=== PATIENT | female | born 1980 | race African-American/Black ===

== ENCOUNTER 2020-05-23 11:52 | Inpatient (IN) | payer MEDICAID, OTHER ==
[~2020-05-23] VITALS: Ht 152.4 cm; Wt 72.6 kg
[2020-05-23 14:00] LABS: Basophils # (auto) 0 10 ^3/uL (0-0.2); Eosinophils # (auto) 0.1 10 ^3/uL (0-0.8)
[2020-05-23 14:02] LABS: Basophils % (auto) 0.4 % (0.0-2.0); Eosinophils % (auto) 1.6 % (0.0-7.0); Hematocrit 10.6 % (36.0-46.0); Lymphocytes # (auto) 1.2 10 ^3/uL (0.4-5.4); Lymphocytes % (auto) 20.4 % (10.0-50.0); Mean Corpuscular Hemoglobin 15.9 pg (28.0-32.0); Mean Corpuscular Hgb Conc. 28.9 g/dL (32.0-36.0); Mean Corpuscular Volume 54.8 fL (80.0-100.0); Monocytes # (auto) 0.4 10 ^3/uL (0-1.3); Monocytes % (auto) 7.3 % (0.0-12.0); Neutrophils # (auto) 4.3 10 ^3/uL (1.6-8.6); Neutrophils % (auto) 70.3 % (37.0-80.0); Nucleated Red Blood Cells % 0.5 %; Platelet Count (auto) 412 10^3/uL (140-450); Red Blood Cells 1.93 10^6/uL (4.0-5.20); White Blood Cell 6.1 10^3/uL (4.4-10.8)
[2020-05-23 14:06] LABS: Hemoglobin 3.1 g/dL (12.2-16.2); Red Cell Distribution Width 25.5 % (11.8-14.3)
[2020-05-23 14:18] LABS: Albumin 3.2 g/dL (3.4-5.0); Calcium 8.4 mg/dL (8.5-10.1); Potassium 3.8 mmol/L (3.5-5.1)
[2020-05-23 14:24] LABS: BUN/Creatinine Ratio 10.5; Bilirubin, Total 0.7 mg/dL (0.2-1.0); Total Protein 8.5 g/dL (6.4-8.2)
[2020-05-23 14:55] LABS: INR 1.74 (0.9-1.15); Partial Thromboplastin Time 33.2 sec (23.0-31.2)
[2020-05-23 16:22] VITALS: BP 104/67
[2020-05-23 16:45] VITALS: BP 106/70
[2020-05-23 17:23] VITALS: BP 112/61
[2020-05-23] MEDS ORDERED: ACETAMINOPHEN 500 MG TAB PO ONE (18:15)
[2020-05-23] MEDS ORDERED: NITROGLYCERIN 0.4 MG SL TAB SL PRN (18:15)
[2020-05-23] MEDS ORDERED: MORPHINE SULF INJ 2 MG/ML SYRINGE 1ML IV PRN (18:15)
[2020-05-23] MEDS ORDERED: METOCLOPRAMIDE HCL 5MG/ml INJ 2ml VIAL IV PRN (18:15)
[2020-05-23] MEDS ORDERED: ACETAMINOPHEN 650 mg PER 20.3 mL UD PO PRN (18:15)
[2020-05-23 18:45] VITALS: BP 117/64
[2020-05-23 18:57] VITALS: BP 117/64
[2020-05-23 22:34] VITALS: BP 117/81
[2020-05-23] MEDS ORDERED: FUROSEMIDE 20 MG/2 ML VIAL IV ONE (23:15)
[2020-05-23] MEDS ORDERED: FUROSEMIDE 40 MG/4 ML VIAL ONE (23:31)
[2020-05-24 00:40] LABS: Hematocrit 18.4 % (36.0-46.0)
[2020-05-24 01:30] VITALS: BP 116/71
[2020-05-24 01:45] VITALS: BP 115/66
[2020-05-24 04:55] VITALS: BP 111/64
[2020-05-24 05:10] VITALS: BP 106/76
[2020-05-24] MEDS ORDERED: FUROSEMIDE 40 MG/4 ML VIAL IV ONE (05:30)
[2020-05-24 09:08] VITALS: BP 119/79
[2020-05-24 11:19] LABS: Basophils # (auto) 0 10 ^3/uL (0-0.2); Eosinophils # (auto) 0 10 ^3/uL (0-0.8); Hemoglobin 10.3 g/dL (12.2-16.2); Nucleated Red Blood Cells % 0.1 %
[2020-05-24 11:21] LABS: Basophils % (auto) 0.3 % (0.0-2.0); Eosinophils % (auto) 0.7 % (0.0-7.0); Hematocrit 30.8 % (36.0-46.0); Lymphocytes # (auto) 0.9 10 ^3/uL (0.4-5.4); Lymphocytes % (auto) 13.8 % (10.0-50.0); Mean Corpuscular Hemoglobin 24.4 pg (28.0-32.0); Mean Corpuscular Hgb Conc. 33.4 g/dL (32.0-36.0); Monocytes # (auto) 0.6 10 ^3/uL (0-1.3); Monocytes % (auto) 8.8 % (0.0-12.0); Neutrophils # (auto) 5.1 10 ^3/uL (1.6-8.6); Neutrophils % (auto) 76.4 % (37.0-80.0); Platelet Count (auto) 387 10^3/uL (140-450); Red Blood Cells 4.21 10^6/uL (4.0-5.20); White Blood Cell 6.7 10^3/uL (4.4-10.8)
[2020-05-24 11:26] LABS: Red Cell Distribution Width 30.7 % (11.8-14.3)
[2020-05-24] MEDS ORDERED: FERR-7 PO (12:17)
[2020-05-24 13:14] VITALS: BP 108/59
[2020-05-24] MEDS ORDERED: CITA-244 PO (13:45)
[2020-05-24] MEDS ORDERED: CAR125T PO (13:45)
[2020-05-24] MEDS ORDERED: LISI2.5T47 PO (13:45)
[2020-05-24] MEDS ORDERED: ATOR80TA PO (13:45)
[2020-05-24] MEDS ORDERED: FAMO20TA10 PO (13:45)
[2020-05-24] MEDS ORDERED: ASPI-231 PO (13:45)
[2020-05-24] MEDS ORDERED: RIVA20TA PO (13:45)
[2020-05-24] MEDS ORDERED: CETI1TAB36 PO (13:45)
== END 2020-05-24 14:24 | disposition home or self-care (01) | DRG 532 ==
LOC: ER 11:52 → OVERFLOW 11:53
PROVIDERS: ADMIT Hospitalist; ATTEND Hospitalist
PROC: 30233N1 Transfusion of Nonautologous Red Blood Cells into Peripheral Vein, Percutaneous Approach (ICD-10-PCS; principal; 2020-05-23)
DX: N93.8 Other specified abnormal uterine and vaginal bleeding (principal); N92.0 Excessive and frequent menstruation with regular cycle; Z20.822 Contact with and (suspected) exposure to COVID-19; Z86.73 Personal history of transient ischemic attack (TIA), and cerebral infarction without residual deficits; D62 Acute posthemorrhagic anemia
CPT/HCPCS: 36415; 36430; 76856; 80053; 84484; 84702; 85014; 85018; 85025; 85610; 85730; 86850; 86900; 86901; 86920; 96374; 96376; G0378

== ENCOUNTER 2022-03-21 07:46 | Inpatient (IN) | payer OTHER, MEDICAID ==
[2022-03-21] VITALS (20 sets, daily range): BP systolic 86–104; BP diastolic 59–73
[~2022-03-21] VITALS: Ht 121.9 cm; Wt 43.1 kg
[~2022-03-21 07:46] MED LIST: ASPI1TAB20 PO; ATOR80TA PO; CAR125T PO; CETI1TAB36 PO; CITA-244 PO; FAMO20TA10 PO; FERR-7 PO; LISI2.5T47 PO; RIVA20TA PO
[2022-03-21] MEDS ORDERED: ADENOSINE 6 MG/2 ML INJ IV ONE ×3 (07:55→08:00)
[2022-03-21] MEDS ORDERED: ACETAMINOPHEN 650 MG RECT SUPP PR ONE (08:00)
[2022-03-21] MEDS ORDERED: dilTIAZem 25 MG/5 ML VIAL IV ONE ×2 (08:08→08:45)
[2022-03-21] MEDS ORDERED: MIDAZOLAM HCL 2MG/2ML 2ml VIAL (1mg/ml) ONE (08:12)
[2022-03-21] MEDS ORDERED: PHENYLEPHRINE HCL 10 MG/ML VL IV ONE (08:15)
[2022-03-21] MEDS ORDERED: PHENYLEPHRINE HCL 10 MG/ML VL ONE (08:19)
[2022-03-21] MEDS ORDERED: DIGOXIN (250MCG/ML) 2 ML AMPULE ONE (08:27)
[2022-03-21] MEDS ORDERED: MIDAZOLAM HCL 2MG/2ML 2ml VIAL (1mg/ml) IV ONE (08:45)
[2022-03-21] MEDS ORDERED: DIGOXIN (250MCG/ML) 2 ML AMPULE IV ONE (09:15)
[2022-03-21] MEDS ORDERED: AMIODARONE HCL 150 MG in D5W 5% 100 ML IV ONE (09:15)
[2022-03-21 09:49] LABS: Basophils # (auto) 0 10 ^3/uL (0-0.2); Eosinophils # (auto) 0 10 ^3/uL (0-0.8); Hematocrit 31.6 % (36.0-46.0); Lymphocytes # (auto) 1.2 10 ^3/uL (0.4-5.4); Lymphocytes % (auto) 8.5 % (10.0-50.0); Mean Corpuscular Hemoglobin 27.4 pg (28.0-32.0); Mean Corpuscular Hgb Conc. 31.8 g/dL (32.0-36.0); Mean Corpuscular Volume 86.2 fL (80.0-100.0); Monocytes # (auto) 0.6 10 ^3/uL (0-1.3); Monocytes % (auto) 4.3 % (0.0-12.0); Neutrophils % (auto) 87.2 % (37.0-80.0); Red Blood Cells 3.66 10^6/uL (4.0-5.20); Red Cell Distribution Width 18.9 % (11.8-14.3); White Blood Cell 13.8 10^3/uL (4.4-10.8)
[2022-03-21 09:54] LABS: INR 1.17 (0.9-1.15); Partial Thromboplastin Time 36.8 sec (24.6-33.4)
[2022-03-21 10:16] LABS: Potassium 3.7 mmol/L (3.5-5.1)
[2022-03-21 10:32] LABS: Albumin 1.5 g/dL (3.4-5.0); BUN/Creatinine Ratio 9.6; Bilirubin, Total 0.6 mg/dL (0.2-1.0); Magnesium 2.5 mg/dL (1.6-2.6); Total Protein 6.9 g/dL (6.4-8.2)
[2022-03-21 10:43] LABS: Urine Bacteria NONE SEEN /hpf (None Seen); Urine Blood TRACE /uL (Negative); Urine Hyaline Cast MOD /lpf (0 - 2); Urine Mucus FEW (None Seen); Urine Specific Gravity 1.024 (1.001-1.035); Urine WBC 11 /hpf (0 - 5)
[2022-03-21] MEDS ORDERED: D5W/SOD CHL 0.45% 1,000 ML IV ONE (10:45)
[2022-03-21] MEDS ORDERED: AMIODARONE 450mg/250ml AE 250 ML IV SCH (10:45)
[2022-03-21] MEDS ORDERED: ASPirin 300 MG RECTAL SUPP PR ONE (10:45)
[2022-03-21] MEDS ORDERED: CEFEPIME 1GM/ 50ML 50 ML IV ONE ×2 (11:00→11:15)
[2022-03-21] MEDS ORDERED: SODIUM CHLORIDE 0.9% 2,000 ML IV ONE (11:00)
[2022-03-21] MEDS ORDERED: HEPARIN DRIP/D5W 100UNITS/ML 250 ML IV SCH (11:15)
[2022-03-21] MEDS ORDERED: VANCOMYCIN 1GM/250ML 250 ML IV ONE (11:45)
[2022-03-21] MEDS ORDERED: HEPARIN SODIUM (PORCINE) 5000 UNITS/ML 1ML VIAL IV ONE (11:45)
[2022-03-21] MEDS: PHENYLEPHRINE IV 250 ML IV SCH (12:23)
[2022-03-21] MEDS ORDERED: VANCOMYCIN PER PHARMACY 0 MG IV SCH (12:30)
[2022-03-21] MEDS ORDERED: NITROGLYCERIN 0.4 MG SL TAB SL PRN (12:30)
[2022-03-21] MEDS ORDERED: DOCUSATE SOD 100 MG CAP PO PRN (12:30)
[2022-03-21] MEDS ORDERED: ONDANSETRON HCL 4 MG/2 ML VIAL IV PRN (12:30)
[2022-03-21] MEDS ORDERED: ACETAMINOPHEN 325 MG TAB PO PRN (12:30)
[2022-03-21] MEDS ORDERED: MORPHINE SULFATE 4 MG/ML SYR/VIAL IV PRN (12:30)
[2022-03-21] MEDS ORDERED: CEFEPIME 2 GM in SODIUM CHL 0.9% 50 ML IV SCH (14:00)
[2022-03-21] MEDS: SODIUM CHLORIDE 0.9% 1,000 ML IV SCH (15:01)
[2022-03-21] MEDS: CEFEPIME 2 GM in SODIUM CHL 0.9% 50 ML IV SCH (15:01)
[2022-03-21 15:20] LABS: Basophils # (auto) 0 10 ^3/uL (0-0.2); Basophils % (auto) 0.2 % (0.0-2.0); Eosinophils # (auto) 0 10 ^3/uL (0-0.8); Hematocrit 29.6 % (36.0-46.0); Hemoglobin 9.4 g/dL (12.2-16.2); Lymphocytes # (auto) 1.7 10 ^3/uL (0.4-5.4); Lymphocytes % (auto) 27.4 % (10.0-50.0); Mean Corpuscular Hemoglobin 27.9 pg (28.0-32.0); Mean Corpuscular Hgb Conc. 31.9 g/dL (32.0-36.0); Mean Corpuscular Volume 87.4 fL (80.0-100.0); Monocytes # (auto) 0.2 10 ^3/uL (0-1.3); Monocytes % (auto) 3.6 % (0.0-12.0); Neutrophils # (auto) 4.4 10 ^3/uL (1.6-8.6); Neutrophils % (auto) 68.8 % (37.0-80.0); Nucleated Red Blood Cells % 0.2 %; Red Blood Cells 3.38 10^6/uL (4.0-5.20); Red Cell Distribution Width 19.3 % (11.8-14.3); White Blood Cell 6.4 10^3/uL (4.4-10.8)
[2022-03-21 15:35] LABS: Magnesium 1.9 mg/dL (1.6-2.6); Phosphorus 3.9 mg/dL (2.5-4.90)
[2022-03-21 15:42] LABS: Sodium Urine 33 mmol/L (40-220)
[2022-03-21 15:55] LABS: Creatinine, Urine 475 mg/dL (30.0-125.0)
[2022-03-21 15:58] LABS: Ferritin 644.9 ng/mL (10-322)
[2022-03-21 16:21] LABS: % Iron Saturation 13.9 % (15-50)
[2022-03-21] MEDS: AMIODARONE 450mg/250ml AE 250 ML IV SCH ×2 (17:00→18:45)
[2022-03-21 18:18] LABS: Uric Acid 8.3 mg/dL (2.6-6.0)
[2022-03-21 18:34] LABS: Folate (Folic Acid) 13.74 ng/mL (5.38-24)
[2022-03-21] MEDS ORDERED: AZITHROMYCIN 500MG/ 250ML 250 ML IV ONE (22:30)
[2022-03-22] VITALS (92 sets, daily range): BP systolic 83–113; BP diastolic 56–83
[2022-03-22] MEDS: SODIUM CHLORIDE 0.9% 1,000 ML IV SCH ×3 (03:10→11:57)
[2022-03-22 04:26] LABS: Basophils # (auto) 0 10 ^3/uL (0-0.2); Eosinophils # (auto) 0 10 ^3/uL (0-0.8); Hemoglobin 11.3 g/dL (12.2-16.2); Monocytes # (auto) 0.4 10 ^3/uL (0-1.3); Monocytes % (auto) 4.8 % (0.0-12.0)
[2022-03-22 04:27] LABS: Basophils % (auto) 0.4 % (0.0-2.0); Hematocrit 35.5 % (36.0-46.0); Lymphocytes % (auto) 12.5 % (10.0-50.0); Mean Corpuscular Hemoglobin 28.4 pg (28.0-32.0); Mean Corpuscular Hgb Conc. 31.8 g/dL (32.0-36.0); Mean Corpuscular Volume 89.1 fL (80.0-100.0); Neutrophils # (auto) 6.4 10 ^3/uL (1.6-8.6); Neutrophils % (auto) 82.3 % (37.0-80.0); Red Blood Cells 3.99 10^6/uL (4.0-5.20); Red Cell Distribution Width 19.3 % (11.8-14.3); White Blood Cell 7.8 10^3/uL (4.4-10.8)
[2022-03-22 05:04] LABS: Albumin 1.3 g/dL (3.4-5.0); BUN/Creatinine Ratio 13.5; Calcium 6.5 mg/dL (8.5-10.1); Potassium 3.3 mmol/L (3.5-5.1)
[2022-03-22 05:07] LABS: Bilirubin, Total 0.5 mg/dL (0.2-1.0); Total Protein 6.3 g/dL (6.4-8.2)
[2022-03-22] MEDS ORDERED: POTASSIUM CHL 20MEQ/100ML 100 ML IV ONE (06:00)
[2022-03-22] MEDS: PHENYLEPHRINE IV 250 ML IV SCH ×3 (08:15→18:16)
[2022-03-22] MEDS: PANTOPRAZOLE 40 MG/10 ML VIAL INJ IV SCH (09:58)
[2022-03-22] MEDS ORDERED: ENOXAPARIN SOD 40 MG/0.4 ML SYRINGE SC SCH (10:00)
[2022-03-22] MEDS: ASPirin 81 mg TAB PO SCH (10:00)
[2022-03-22] MEDS ORDERED: LACTATED RINGER'S 1,000 ML IV ONE ×2 (10:00)
[2022-03-22] MEDS: AZITHROMYCIN 500MG/ 250ML 250 ML IV SCH (10:04)
[2022-03-22] MEDS ORDERED: GASTROGRAFIN 120 ML SOL ONE (11:41)
[2022-03-22] MEDS: HYDROCORTISONE SOD SUCC 100 MG/2ML INJ VIAL IV SCH ×3 (11:53→22:04)
[2022-03-22] MEDS: CEFEPIME 2 GM in SODIUM CHL 0.9% 50 ML IV SCH (12:57)
[2022-03-22] MEDS ORDERED: metroNIDAZOLE 500MG/100ML 100 ML IV SCH (14:00)
[2022-03-22] MEDS: metroNIDAZOLE 500MG/100ML 100 ML IV SCH (17:23)
[2022-03-22] MEDS: AMIODARONE 450mg/250ml AE 250 ML IV SCH (22:30)
[2022-03-23] VITALS (62 sets, daily range): BP systolic 91–121; BP diastolic 61–86
[2022-03-23] MEDS: metroNIDAZOLE 500MG/100ML 100 ML IV SCH ×4 (00:33→23:34)
[2022-03-23] MEDS: SODIUM CHLORIDE 0.9% 1,000 ML IV SCH ×2 (01:30→08:16)
[2022-03-23] MEDS: HYDROCORTISONE SOD SUCC 100 MG/2ML INJ VIAL IV SCH ×4 (04:10→22:05)
[2022-03-23 04:26] LABS: Urine Bacteria FEW /hpf (None Seen); Urine Blood 2+ /uL (Negative); Urine Hyaline Cast MOD /lpf (0 - 2); Urine Mucus FEW (None Seen); Urine Specific Gravity 1.029 (1.001-1.035); Urine WBC 14 /hpf (0 - 5)
[2022-03-23 04:34] LABS: Creatinine, Urine 156 mg/dL (30.0-125.0); Sodium Urine 14 mmol/L (40-220)
[2022-03-23 04:36] LABS: Albumin 1.1 g/dL (3.4-5.0); Calcium 6.7 mg/dL (8.5-10.1); Uric Acid 7.2 mg/dL (2.6-6.0)
[2022-03-23 04:39] LABS: BUN/Creatinine Ratio 21.3; Bilirubin, Direct 0.1 mg/dL (0-0.2); Bilirubin, Total 0.5 mg/dL (0.2-1.0); Phosphorus 3.4 mg/dL (2.5-4.90); Total Protein 5.9 g/dL (6.4-8.2)
[2022-03-23 04:49] LABS: Potassium 2.9 mmol/L (3.5-5.1)
[2022-03-23] MEDS: POTASSIUM CHL 20MEQ/100ML 100 ML IV SCH ×4 (06:26→18:10)
[2022-03-23] MEDS: PHENYLEPHRINE IV 250 ML IV SCH ×3 (08:17→22:20)
[2022-03-23] MEDS: D5W 5% 1,000 ML IV SCH ×2 (08:50→18:10)
[2022-03-23] MEDS: ASPirin 81 mg TAB PO SCH (09:49)
[2022-03-23] MEDS: AZITHROMYCIN 500MG/ 250ML 250 ML IV SCH (09:49)
[2022-03-23] MEDS: PANTOPRAZOLE 40 MG/10 ML VIAL INJ IV SCH (09:49)
[2022-03-23] MEDS ORDERED: ADENOSINE 6 MG/2 ML INJ IV ONE (11:42)
[2022-03-23] MEDS ORDERED: AMIODARONE HCL (50 MG/ ML) 3 ML VIAL IV ONE (11:43)
[2022-03-23] MEDS ORDERED: POTASSIUM CHLORIDE 40 MEQ, LIDOCAINE 1% (LOCAL ANESTH.) 4 ML in SODIUM CHL 0.9% 250 ML IV ONE (11:45)
[2022-03-23] MEDS: CEFEPIME 2 GM in SODIUM CHL 0.9% 50 ML IV SCH (12:30)
[2022-03-23] MEDS: AMIODARONE 450mg/250ml AE 250 ML IV SCH (12:30)
[2022-03-23 15:31] LABS: BUN/Creatinine Ratio 22.2; Calcium 7.1 mg/dL (8.5-10.1)
[2022-03-23] MEDS ORDERED: KETOROLAC TROMETH 30 MG/ML 1ML VIAL IV ONE (23:15)
[2022-03-24] VITALS (51 sets, daily range): BP systolic 98–123; BP diastolic 72–94
[2022-03-24] MEDS: AMIODARONE 450mg/250ml AE 250 ML IV SCH ×2 (03:09→21:05)
[2022-03-24] MEDS: D5W 5% 1,000 ML IV SCH (03:28)
[2022-03-24] MEDS: HYDROCORTISONE SOD SUCC 100 MG/2ML INJ VIAL IV SCH ×4 (03:31→21:53)
[2022-03-24 04:52] LABS: Basophils # (auto) 0 10 ^3/uL (0-0.2); Basophils % (auto) 0.2 % (0.0-2.0); Eosinophils # (auto) 0 10 ^3/uL (0-0.8); Hematocrit 31.9 % (36.0-46.0); Hemoglobin 9.7 g/dL (12.2-16.2); Lymphocytes # (auto) 0.7 10 ^3/uL (0.4-5.4); Lymphocytes % (auto) 6.7 % (10.0-50.0); Mean Corpuscular Hemoglobin 27.8 pg (28.0-32.0); Mean Corpuscular Hgb Conc. 30.4 g/dL (32.0-36.0); Mean Corpuscular Volume 91.3 fL (80.0-100.0); Monocytes # (auto) 0.4 10 ^3/uL (0-1.3); Monocytes % (auto) 3.6 % (0.0-12.0); Neutrophils # (auto) 9.8 10 ^3/uL (1.6-8.6); Neutrophils % (auto) 89.5 % (37.0-80.0); White Blood Cell 10.9 10^3/uL (4.4-10.8)
[2022-03-24 04:56] LABS: Red Cell Distribution Width 20.7 % (11.8-14.3)
[2022-03-24 05:00] LABS: BUN/Creatinine Ratio 25.4; Calcium 7.1 mg/dL (8.5-10.1); Potassium 3.4 mmol/L (3.5-5.1)
[2022-03-24] MEDS: PHENYLEPHRINE IV 250 ML IV SCH ×3 (06:40→23:20)
[2022-03-24] MEDS: metroNIDAZOLE 500MG/100ML 100 ML IV SCH ×3 (08:19→23:47)
[2022-03-24] MEDS: ASPirin 81 mg TAB PO SCH (08:21)
[2022-03-24] MEDS ORDERED: POTASSIUM CHL 20MEQ/100ML 100 ML IV ONE ×2 (09:15→10:15)
[2022-03-24] MEDS ORDERED: D5W/SOD CHL 0.45% 1,000 ML IV SCH (09:30)
[2022-03-24] MEDS: AZITHROMYCIN 500MG/ 250ML 250 ML IV SCH (09:36)
[2022-03-24] MEDS: PANTOPRAZOLE 40 MG/10 ML VIAL INJ IV SCH (09:37)
[2022-03-24] MEDS ORDERED: DOPamine 1600MCG/ML D5W 250 ML IV SCH (10:15)
[2022-03-24] MEDS: CEFEPIME 2 GM in SODIUM CHL 0.9% 50 ML IV SCH (11:51)
[2022-03-25] VITALS (32 sets, daily range): BP systolic 109–144; BP diastolic 81–112
[2022-03-25] MEDS: HYDROCORTISONE SOD SUCC 100 MG/2ML INJ VIAL IV SCH (03:39)
[2022-03-25 04:37] LABS: Basophils # (auto) 0 10 ^3/uL (0-0.2); Basophils % (auto) 0.1 % (0.0-2.0); Eosinophils # (auto) 0 10 ^3/uL (0-0.8); Hematocrit 33.8 % (36.0-46.0); Hemoglobin 10.4 g/dL (12.2-16.2); Lymphocytes # (auto) 0.6 10 ^3/uL (0.4-5.4); Lymphocytes % (auto) 4.2 % (10.0-50.0); Mean Corpuscular Hemoglobin 27.6 pg (28.0-32.0); Mean Corpuscular Hgb Conc. 30.6 g/dL (32.0-36.0); Mean Corpuscular Volume 90.1 fL (80.0-100.0); Monocytes # (auto) 0.4 10 ^3/uL (0-1.3); Monocytes % (auto) 2.7 % (0.0-12.0); Neutrophils # (auto) 12.7 10 ^3/uL (1.6-8.6); Nucleated Red Blood Cells % 0.5 %; Red Blood Cells 3.75 10^6/uL (4.0-5.20); White Blood Cell 13.7 10^3/uL (4.4-10.8)
[2022-03-25] MEDS: PHENYLEPHRINE IV 250 ML IV SCH ×2 (07:40→16:00)
[2022-03-25] MEDS: metroNIDAZOLE 500MG/100ML 100 ML IV SCH ×2 (08:00→16:22)
[2022-03-25 08:24] LABS: Potassium 3.5 mmol/L (3.5-5.1)
[2022-03-25 08:34] LABS: BUN/Creatinine Ratio 26.5; Bilirubin, Total 0.3 mg/dL (0.2-1.0); Calcium 7.6 mg/dL (8.5-10.1); Total Protein 6.4 g/dL (6.4-8.2)
[2022-03-25] MEDS: CEFEPIME 2 GM in SODIUM CHL 0.9% 50 ML IV SCH (10:00)
[2022-03-25] MEDS ORDERED: CLOPIDOGREL BISULFATE 75 MG TAB PO SCH (10:00)
[2022-03-25] MEDS: PANTOPRAZOLE 40 MG/10 ML VIAL INJ IV SCH (10:19)
[2022-03-25] MEDS: DOXYCYCLINE 100MG/250ML 250 ML IV SCH ×2 (10:30→22:02)
[2022-03-25] MEDS ORDERED: SOD CHL 0.45% 1,000 ML IV SCH (10:30)
[2022-03-25] MEDS: ENOXAPARIN SOD 30 MG/0.3 ML SYRINGE SC SCH (11:03)
[2022-03-25] MEDS ORDERED: AMIODARONE 450mg/250ml AE 250 ML IV ONE (12:17)
[2022-03-25 12:37] LABS: INR 1.12 (0.9-1.15); Partial Thromboplastin Time 32.2 sec (24.6-33.4)
[2022-03-25] MEDS: SODIUM BICARBONATE 50ML VIAL 50 ML in D5W 5% 1,000 ML IV SCH (13:45)
[2022-03-25] MEDS: METOCLOPRAMIDE HCL 5MG/ml INJ 2ml VIAL IV SCH ×2 (14:00→22:04)
[2022-03-25] MEDS ORDERED: WARFARIN SODIUM 1 MG TAB PO ONE (17:00)
[2022-03-25] MEDS: AMIODARONE HCL 200 MG TAB PO SCH (22:02)
[2022-03-26] VITALS (22 sets, daily range): BP systolic 107–135; BP diastolic 80–92
[2022-03-26] MEDS: PHENYLEPHRINE IV 250 ML IV SCH ×2 (00:20→08:40)
[2022-03-26] MEDS: metroNIDAZOLE 500MG/100ML 100 ML IV SCH ×3 (02:02→16:00)
[2022-03-26] MEDS: SODIUM BICARBONATE 50ML VIAL 50 ML in D5W 5% 1,000 ML IV SCH ×2 (03:30→10:45)
[2022-03-26 04:09] LABS: INR 1.13 (0.9-1.15); Partial Thromboplastin Time 34.8 sec (24.6-33.4)
[2022-03-26] MEDS: METOCLOPRAMIDE HCL 5MG/ml INJ 2ml VIAL IV SCH (06:24)
[2022-03-26] MEDS ORDERED: ALBUMIN 25% 100 ML IV ONE (08:15)
[2022-03-26 08:22] LABS: Basophils # (auto) 0 10 ^3/uL (0-0.2); Basophils % (auto) 0.2 % (0.0-2.0); Eosinophils # (auto) 0 10 ^3/uL (0-0.8); Hematocrit 33.6 % (36.0-46.0); Hemoglobin 10.9 g/dL (12.2-16.2); Lymphocytes # (auto) 0.5 10 ^3/uL (0.4-5.4); Lymphocytes % (auto) 4.2 % (10.0-50.0); Mean Corpuscular Hemoglobin 28.3 pg (28.0-32.0); Mean Corpuscular Hgb Conc. 32.6 g/dL (32.0-36.0); Mean Corpuscular Volume 86.9 fL (80.0-100.0); Monocytes # (auto) 0.4 10 ^3/uL (0-1.3); Monocytes % (auto) 3.1 % (0.0-12.0); Neutrophils # (auto) 11.6 10 ^3/uL (1.6-8.6); Neutrophils % (auto) 92.5 % (37.0-80.0); Nucleated Red Blood Cells % 0.1 %; Red Blood Cells 3.86 10^6/uL (4.0-5.20); White Blood Cell 12.5 10^3/uL (4.4-10.8)
[2022-03-26 08:25] LABS: Albumin 1.2 g/dL (3.4-5.0); BUN/Creatinine Ratio 24.8; Bilirubin, Total 0.2 mg/dL (0.2-1.0); Calcium 7.2 mg/dL (8.5-10.1); Potassium 3.6 mmol/L (3.5-5.1); Total Protein 5.9 g/dL (6.4-8.2)
[2022-03-26] MEDS: POTASSIUM CHL 20MEQ/100ML 100 ML IV SCH ×2 (08:45→11:09)
[2022-03-26 08:47] LABS: Red Cell Distribution Width 20.4 % (11.8-14.3)
[2022-03-26] MEDS: AMIODARONE HCL 200 MG TAB PO SCH ×2 (10:00→21:48)
[2022-03-26] MEDS: CEFEPIME 2 GM in SODIUM CHL 0.9% 50 ML IV SCH (10:00)
[2022-03-26] MEDS: ENOXAPARIN SOD 30 MG/0.3 ML SYRINGE SC SCH (10:00)
[2022-03-26] MEDS: PANTOPRAZOLE 40 MG/10 ML VIAL INJ IV SCH (10:26)
[2022-03-26] MEDS: DOXYCYCLINE 100MG/250ML 250 ML IV SCH ×2 (10:30→22:01)
[2022-03-26] MEDS: ENOXAPARIN SOD 100 MG/1 ML SYRINGE SC SCH ×2 (11:44→21:50)
[2022-03-26] MEDS ORDERED: MORPHINE SULFATE INJ 2 MG/ml SYRG IV PRN (15:15)
[2022-03-26] MEDS ORDERED: MORPHINE SULFATE INJ 2 MG/ml SYRG ONE (15:20)
[2022-03-26] MEDS ORDERED: WARFARIN SODIUM 5 MG TAB PO ONE (17:00)
[2022-03-27] VITALS (13 sets, daily range): BP systolic 104–132; BP diastolic 71–104
[2022-03-27] MEDS: metroNIDAZOLE 500MG/100ML 100 ML IV SCH ×2 (00:03→08:00)
[2022-03-27] MEDS: SODIUM BICARBONATE 50ML VIAL 50 ML in D5W 5% 1,000 ML IV SCH ×2 (01:00→07:45)
[2022-03-27 09:17] LABS: Basophils # (auto) 0 10 ^3/uL (0-0.2); Eosinophils # (auto) 0 10 ^3/uL (0-0.8); Hemoglobin 10.8 g/dL (12.2-16.2); Lymphocytes # (auto) 0.6 10 ^3/uL (0.4-5.4); Lymphocytes % (auto) 4.8 % (10.0-50.0); Mean Corpuscular Hemoglobin 27.3 pg (28.0-32.0); Mean Corpuscular Hgb Conc. 31.9 g/dL (32.0-36.0); Mean Corpuscular Volume 85.4 fL (80.0-100.0); Monocytes # (auto) 0.3 10 ^3/uL (0-1.3); Monocytes % (auto) 2.1 % (0.0-12.0); Neutrophils # (auto) 12.3 10 ^3/uL (1.6-8.6); Neutrophils % (auto) 93.1 % (37.0-80.0); Red Blood Cells 3.97 10^6/uL (4.0-5.20); Red Cell Distribution Width 19.2 % (11.8-14.3); White Blood Cell 13.2 10^3/uL (4.4-10.8)
[2022-03-27 09:42] LABS: Albumin 1.4 g/dL (3.4-5.0); BUN/Creatinine Ratio 21.1
[2022-03-27 09:50] LABS: Bilirubin, Total 0.4 mg/dL (0.2-1.0); Total Protein 4.9 g/dL (6.4-8.2)
[2022-03-27 09:54] LABS: INR 1.17 (0.9-1.15); Partial Thromboplastin Time 38.3 sec (24.6-33.4)
[2022-03-27] MEDS: CEFEPIME 2 GM in SODIUM CHL 0.9% 50 ML IV SCH (10:00)
[2022-03-27] MEDS: PANTOPRAZOLE 40 MG/10 ML VIAL INJ IV SCH (10:00)
[2022-03-27] MEDS ORDERED: SOD CHL 0.45% 1,000 ML IV SCH (10:30)
[2022-03-27] MEDS: AMIODARONE HCL 200 MG TAB PO SCH ×2 (12:01→22:46)
[2022-03-27] MEDS ORDERED: POTASSIUM CHL 20MEQ/100ML 100 ML IV SCH (13:45)
[2022-03-27] MEDS: POTASSIUM CHL 20MEQ/100ML 100 ML IV SCH ×3 (14:43→20:43)
[2022-03-27] MEDS: METOPROLOL TARTRATE 25 MG TAB PO SCH ×2 (16:01→22:46)
[2022-03-27] MEDS ORDERED: WARFARIN SODIUM 5 MG TAB NG ONE (17:00)
[2022-03-27] MEDS: SODIUM BICARBONATE 50ML VIAL 50 ML in SOD CHL 0.45% 1,000 ML IV SCH (20:34)
[2022-03-27] MEDS: ENOXAPARIN SOD 100 MG/1 ML SYRINGE SC SCH ×2 (22:47→22:51)
[2022-03-27] MEDS: DOXYCYCLINE 100MG/250ML 250 ML IV SCH (23:09)
[2022-03-28] MEDS: SODIUM BICARBONATE 50ML VIAL 50 ML in SOD CHL 0.45% 1,000 ML IV SCH ×4 (00:15→17:26)
[2022-03-28] MEDS: metroNIDAZOLE 500MG/100ML 100 ML IV SCH ×2 (00:23→08:21)
[2022-03-28] MEDS: POTASSIUM CHL 20MEQ/100ML 100 ML IV SCH (00:24)
[2022-03-28 05:00] VITALS: BP 121/90
[2022-03-28 07:28] LABS: INR 1.19 (0.9-1.15)
[2022-03-28 08:00] VITALS: BP 122/84
[2022-03-28] MEDS: PANTOPRAZOLE 40 MG/10 ML VIAL INJ IV SCH (11:06)
[2022-03-28] MEDS: METOPROLOL TARTRATE 25 MG TAB PO SCH (11:07)
[2022-03-28] MEDS: ENOXAPARIN SOD 100 MG/1 ML SYRINGE SC SCH ×2 (11:07→21:20)
[2022-03-28] MEDS: AMIODARONE HCL 200 MG TAB PO SCH (11:08)
[2022-03-28] MEDS ORDERED: POTASSIUM CHL 20MEQ/100ML 100 ML IV SCH (11:30)
[2022-03-28] MEDS: DOXYCYCLINE 100MG/250ML 250 ML IV SCH (11:42)
[2022-03-28 12:00] VITALS: BP 105/80
[2022-03-28] MEDS ORDERED: TPN PER PHARMACY 0 ML IV SCH (12:30)
[2022-03-28 12:54] LABS: Basophils # (auto) 0 10 ^3/uL (0-0.2); Eosinophils # (auto) 0 10 ^3/uL (0-0.8); Eosinophils % (auto) 0.1 % (0.0-7.0); Hematocrit 29.7 % (36.0-46.0); Hemoglobin 9.7 g/dL (12.2-16.2); Lymphocytes # (auto) 0.6 10 ^3/uL (0.4-5.4); Lymphocytes % (auto) 3.9 % (10.0-50.0); Mean Corpuscular Hemoglobin 27.7 pg (28.0-32.0); Mean Corpuscular Hgb Conc. 32.7 g/dL (32.0-36.0); Mean Corpuscular Volume 84.8 fL (80.0-100.0); Monocytes # (auto) 0.3 10 ^3/uL (0-1.3); Monocytes % (auto) 2.3 % (0.0-12.0); Neutrophils # (auto) 13.5 10 ^3/uL (1.6-8.6); Neutrophils % (auto) 93.7 % (37.0-80.0); Red Cell Distribution Width 19.9 % (11.8-14.3); White Blood Cell 14.4 10^3/uL (4.4-10.8)
[2022-03-28 13:03] LABS: BUN/Creatinine Ratio 26.7; Calcium 7.4 mg/dL (8.5-10.1); Potassium 4.2 mmol/L (3.5-5.1)
[2022-03-28 15:27] LABS: Magnesium 1.2 mg/dL (1.6-2.6); Phosphorus 1.5 mg/dL (2.5-4.90)
[2022-03-28] MEDS: METOCLOPRAMIDE HCL 5MG/ml INJ 2ml VIAL IV SCH ×2 (15:37→21:21)
[2022-03-28] MEDS ORDERED: GASTROGRAFIN 120 ML SOL ONE (15:58)
[2022-03-28 16:00] VITALS: BP 137/95
[2022-03-28] MEDS ORDERED: SODIUM PHOSPHATES 30 MEQ in D5W 5% 250 ML IV ONE (16:45)
[2022-03-28] MEDS: MAGNESIUM SULFATE 1GM/100ML 100 ML IV SCH ×3 (17:47→20:27)
[2022-03-28] MEDS: MEROPENEM 1GM IVPB 100 ML IV SCH (21:33)
[2022-03-28 22:00] VITALS: BP 117/78
[2022-03-29] MEDS ORDERED: DEXTROSE (50%) 50ML SYRG IV SCH
[2022-03-29] MEDS: ACCU-CHEK COMFORT CURVE STRIP VI SCH ×5 (00:56→23:29)
[2022-03-29] MEDS: AMINO ACID INFUSION IN D10W 1,000 ML IV NR ×2 (00:57→19:49)
[2022-03-29] MEDS: InsuLIN REG 1unit/0.01ml Soln (100units/ml) SC SCH ×5 (05:06→23:29)
[2022-03-29] MEDS: METOCLOPRAMIDE HCL 5MG/ml INJ 2ml VIAL IV SCH ×3 (05:07→21:35)
[2022-03-29 06:24] LABS: Basophils # (auto) 0 10 ^3/uL (0-0.2); Eosinophils # (auto) 0 10 ^3/uL (0-0.8); Eosinophils % (auto) 0.2 % (0.0-7.0); Hematocrit 26.2 % (36.0-46.0); Lymphocytes # (auto) 0.7 10 ^3/uL (0.4-5.4); Lymphocytes % (auto) 7.9 % (10.0-50.0); Mean Corpuscular Hgb Conc. 34.3 g/dL (32.0-36.0); Mean Corpuscular Volume 84.4 fL (80.0-100.0); Monocytes # (auto) 0.2 10 ^3/uL (0-1.3); Monocytes % (auto) 2.6 % (0.0-12.0); Neutrophils # (auto) 7.8 10 ^3/uL (1.6-8.6); Neutrophils % (auto) 89.3 % (37.0-80.0); Red Cell Distribution Width 19.1 % (11.8-14.3); White Blood Cell 8.7 10^3/uL (4.4-10.8)
[2022-03-29 06:42] LABS: Potassium 3.5 mmol/L (3.5-5.1)
[2022-03-29 06:45] LABS: Albumin 1.3 g/dL (3.4-5.0); BUN/Creatinine Ratio 28.9; Magnesium 1.9 mg/dL (1.6-2.6)
[2022-03-29 06:48] LABS: Bilirubin, Total 0.4 mg/dL (0.2-1.0); Phosphorus 3.5 mg/dL (2.5-4.90); Total Protein 4.9 g/dL (6.4-8.2)
[2022-03-29] MEDS: METOPROLOL TARTRATE 1MG/1ML-5ML VIAL IV PRN (06:51)
[2022-03-29 08:45] VITALS: BP 137/95
[2022-03-29] MEDS ORDERED: GASTROGRAFIN 120 ML SOL ONE (08:52)
[2022-03-29] MEDS: ENOXAPARIN SOD 100 MG/1 ML SYRINGE SC SCH ×2 (10:44→21:36)
[2022-03-29] MEDS: PANTOPRAZOLE 40 MG/10 ML VIAL INJ IV SCH (10:44)
[2022-03-29] MEDS: MEROPENEM 1GM IVPB 100 ML IV SCH ×2 (10:44→21:35)
[2022-03-29] MEDS ORDERED: CARVEDILOL 3.125 MG TAB PO ONE (10:45)
[2022-03-29] MEDS ORDERED: MAGNESIUM SULFATE 1GM/100ML 100 ML IV ONE (11:00)
[2022-03-29] MEDS ORDERED: POTASSIUM CHLORIDE 20 MEQ in SODIUM CHLORIDE 0.9% 1,000 ML IV SCH (12:00)
[2022-03-29 12:40] VITALS: BP 129/88
[2022-03-29] MEDS: SOD CHL 0.9%/ KCL 20MEQ 1,000 ML IV SCH (12:52)
[2022-03-29] MEDS ORDERED: POTASSIUM CHLORIDE 40 MEQ, LIDOCAINE 1% (LOCAL ANESTH.) 4 ML in SODIUM CHL 0.9% 250 ML IV ONE (13:00)
[2022-03-29 17:37] VITALS: BP 143/97
[2022-03-29] MEDS ORDERED: PPN PER PHARMACY IV NR ×10 (20:00)
[2022-03-29] MEDS: CARVEDILOL 3.125 MG TAB PO SCH (21:36)
[2022-03-29 22:00] VITALS: BP 139/96
[2022-03-30] MEDS: SOD CHL 0.9%/ KCL 20MEQ 1,000 ML IV SCH ×2 (03:55→21:28)
[2022-03-30 05:00] VITALS: BP 130/86
[2022-03-30] MEDS: METOCLOPRAMIDE HCL 5MG/ml INJ 2ml VIAL IV SCH ×3 (05:56→21:25)
[2022-03-30] MEDS: InsuLIN REG 1unit/0.01ml Soln (100units/ml) SC SCH ×3 (05:56→18:00)
[2022-03-30] MEDS: ACCU-CHEK COMFORT CURVE STRIP VI SCH ×3 (05:57→18:24)
[2022-03-30 08:53] LABS: Albumin 1.2 g/dL (3.4-5.0); BUN/Creatinine Ratio 38.7; Calcium 6.8 mg/dL (8.5-10.1); Magnesium 1.9 mg/dL (1.6-2.6); Phosphorus 1.8 mg/dL (2.5-4.90); Potassium 3.4 mmol/L (3.5-5.1); Total Protein 4.8 g/dL (6.4-8.2)
[2022-03-30 08:59] LABS: Bilirubin, Total 0.3 mg/dL (0.2-1.0)
[2022-03-30 09:18] VITALS: BP 116/80
[2022-03-30] MEDS ORDERED: POTASSIUM PHOSPHATE 44 MEQ in D5W 5% 250 ML IV ONE (09:30)
[2022-03-30] MEDS: PANTOPRAZOLE 40 MG/10 ML VIAL INJ IV SCH (09:41)
[2022-03-30] MEDS: ENOXAPARIN SOD 100 MG/1 ML SYRINGE SC SCH (09:42)
[2022-03-30] MEDS: CARVEDILOL 3.125 MG TAB PO SCH ×2 (09:43→21:41)
[2022-03-30] MEDS: MEROPENEM 1GM IVPB 100 ML IV SCH ×2 (09:43→21:25)
[2022-03-30 13:00] VITALS: BP 118/89
[2022-03-30 17:00] VITALS: BP 128/77
[2022-03-30] MEDS ORDERED: PPN PER PHARMACY IV NR ×9 (20:00)
[2022-03-30] MEDS: ENOXAPARIN SOD 40 MG/0.4 ML SYRINGE SC SCH (21:25)
[2022-03-30 22:00] VITALS: BP 114/86
[2022-03-31] MEDS: ACCU-CHEK COMFORT CURVE STRIP VI SCH ×5 (00:13→23:52)
[2022-03-31 05:00] VITALS: BP 122/78
[2022-03-31 05:43] VITALS: BP 122/78
[2022-03-31] MEDS: METOCLOPRAMIDE HCL 5MG/ml INJ 2ml VIAL IV SCH ×3 (05:55→22:31)
[2022-03-31] MEDS: InsuLIN REG 1unit/0.01ml Soln (100units/ml) SC SCH ×5 (06:00→23:52)
[2022-03-31 06:45] LABS: INR 1.03 (0.9-1.15)
[2022-03-31 07:08] LABS: Albumin 1.2 g/dL (3.4-5.0); BUN/Creatinine Ratio 47.6; Bilirubin, Total 0.5 mg/dL (0.2-1.0); Calcium 6.8 mg/dL (8.5-10.1); Magnesium 1.7 mg/dL (1.6-2.6); Phosphorus 2.6 mg/dL (2.5-4.90); Potassium 3.7 mmol/L (3.5-5.1); Total Protein 4.6 g/dL (6.4-8.2)
[2022-03-31] MEDS: METOPROLOL TARTRATE 1MG/1ML-5ML VIAL IV PRN (08:59)
[2022-03-31 09:00] VITALS: BP 103/71
[2022-03-31] MEDS: PANTOPRAZOLE 40 MG/10 ML VIAL INJ IV SCH (10:15)
[2022-03-31] MEDS: ENOXAPARIN SOD 40 MG/0.4 ML SYRINGE SC SCH ×2 (10:16→22:32)
[2022-03-31] MEDS: CARVEDILOL 3.125 MG TAB PO SCH ×2 (10:24→22:32)
[2022-03-31] MEDS: AMIODARONE HCL 200 MG TAB PO SCH ×2 (11:41→22:31)
[2022-03-31] MEDS: MEROPENEM 1GM IVPB 100 ML IV SCH ×2 (11:55→22:31)
[2022-03-31 13:00] VITALS: BP 106/75
[2022-03-31] MEDS ORDERED: DIGOXIN (250MCG/ML) 2 ML AMPULE IV ONE (16:00)
[2022-03-31 16:49] VITALS: BP 110/79
[2022-03-31] MEDS ORDERED: WARFARIN SODIUM 5 MG TAB PO ONE (17:00)
[2022-03-31] MEDS ORDERED: PPN PER PHARMACY IV NR ×9 (20:00)
[2022-03-31] MEDS: SOD CHL 0.9%/ KCL 20MEQ 1,000 ML IV SCH (20:00)
[2022-03-31 22:00] VITALS: BP 101/74
[2022-04-01 05:00] VITALS: BP 102/79
[2022-04-01] MEDS: METOCLOPRAMIDE HCL 5MG/ml INJ 2ml VIAL IV SCH (06:33)
[2022-04-01] MEDS: ACCU-CHEK COMFORT CURVE STRIP VI SCH ×2 (06:33→12:05)
[2022-04-01] MEDS: InsuLIN REG 1unit/0.01ml Soln (100units/ml) SC SCH ×2 (06:33→12:00)
[2022-04-01 07:14] LABS: Basophils # (auto) 0 10 ^3/uL (0-0.2); Basophils % (auto) 0.1 % (0.0-2.0); Eosinophils # (auto) 0 10 ^3/uL (0-0.8); Eosinophils % (auto) 0.2 % (0.0-7.0); Red Cell Distribution Width 18.9 % (11.8-14.3)
[2022-04-01 07:17] LABS: Hematocrit 25.3 % (36.0-46.0); Hemoglobin 8.4 g/dL (12.2-16.2); Lymphocytes # (auto) 1.1 10 ^3/uL (0.4-5.4); Lymphocytes % (auto) 13.2 % (10.0-50.0); Mean Corpuscular Hemoglobin 29.1 pg (28.0-32.0); Mean Corpuscular Hgb Conc. 33.1 g/dL (32.0-36.0); Mean Corpuscular Volume 87.9 fL (80.0-100.0); Monocytes # (auto) 0.7 10 ^3/uL (0-1.3); Monocytes % (auto) 7.8 % (0.0-12.0); Neutrophils # (auto) 6.7 10 ^3/uL (1.6-8.6); Neutrophils % (auto) 78.7 % (37.0-80.0); Red Blood Cells 2.88 10^6/uL (4.0-5.20); White Blood Cell 8.5 10^3/uL (4.4-10.8)
[2022-04-01 07:46] LABS: Albumin 1.2 g/dL (3.4-5.0); Calcium 6.8 mg/dL (8.5-10.1); Magnesium 1.8 mg/dL (1.6-2.6); Potassium 3.9 mmol/L (3.5-5.1)
[2022-04-01 07:59] LABS: BUN/Creatinine Ratio 39.5; Bilirubin, Total 0.7 mg/dL (0.2-1.0); Phosphorus 2.5 mg/dL (2.5-4.90); Total Protein 4.8 g/dL (6.4-8.2)
[2022-04-01 09:00] VITALS: BP 123/78
[2022-04-01] MEDS ORDERED: AMIODARONE 450mg/250ml AE 250 ML IV SCH ×3 (10:15→16:15)
[2022-04-01] MEDS: PANTOPRAZOLE 40 MG TAB PO SCH (10:18)
[2022-04-01] MEDS: CARVEDILOL 3.125 MG TAB PO SCH ×2 (10:19→21:31)
[2022-04-01] MEDS: ENOXAPARIN SOD 40 MG/0.4 ML SYRINGE SC SCH ×2 (10:26→21:32)
[2022-04-01 10:39] LABS: INR 1.03 (0.9-1.15)
[2022-04-01] MEDS ORDERED: MAGNESIUM SULFATE 1GM/100ML 100 ML IV ONE (11:00)
[2022-04-01] MEDS ORDERED: METOPROLOL TARTRATE 1MG/1ML-5ML VIAL IV ONE (11:00)
[2022-04-01 13:00] VITALS: BP 115/70
[2022-04-01 17:00] VITALS: BP 105/72
[2022-04-01] MEDS ORDERED: WARFARIN SODIUM 2 MG TAB PO ONE (17:00)
[2022-04-01] MEDS: ENSURE CLEAR Mixed Berry 8oz Carton PO SCH ×2 (18:37→18:39)
[2022-04-01] MEDS: AMIODARONE 450mg/250ml AE 250 ML IV SCH (20:06)
[2022-04-01 22:00] VITALS: BP 117/87
[2022-04-02 05:00] VITALS: BP 126/84
[2022-04-02 06:01] LABS: Basophils # (auto) 0 10 ^3/uL (0-0.2); Basophils % (auto) 0.1 % (0.0-2.0); Eosinophils # (auto) 0 10 ^3/uL (0-0.8); Eosinophils % (auto) 0.1 % (0.0-7.0); Hematocrit 21.9 % (36.0-46.0); Red Cell Distribution Width 17.6 % (11.8-14.3)
[2022-04-02 06:04] LABS: Hemoglobin 7.5 g/dL (12.2-16.2); Lymphocytes # (auto) 1.1 10 ^3/uL (0.4-5.4); Lymphocytes % (auto) 10.1 % (10.0-50.0); Mean Corpuscular Hemoglobin 28.7 pg (28.0-32.0); Mean Corpuscular Volume 84.4 fL (80.0-100.0); Monocytes # (auto) 0.9 10 ^3/uL (0-1.3); Monocytes % (auto) 8.6 % (0.0-12.0); Neutrophils # (auto) 8.5 10 ^3/uL (1.6-8.6); Neutrophils % (auto) 81.1 % (37.0-80.0); White Blood Cell 10.4 10^3/uL (4.4-10.8)
[2022-04-02 07:08] LABS: Calcium 7.1 mg/dL (8.5-10.1); Magnesium 1.7 mg/dL (1.6-2.6); Potassium 3.7 mmol/L (3.5-5.1)
[2022-04-02 08:05] LABS: INR 1.18 (0.9-1.15); Partial Thromboplastin Time 30.3 sec (24.6-33.4)
[2022-04-02 09:00] VITALS: BP 107/81
[2022-04-02] MEDS: ENSURE CLEAR Mixed Berry 8oz Carton PO SCH ×3 (09:16→19:03)
[2022-04-02] MEDS ORDERED: DIGOXIN (250MCG/ML) 2 ML AMPULE IV ONE ×2 (10:30→16:00)
[2022-04-02] MEDS: AMIODARONE 450mg/250ml AE 250 ML IV SCH (10:53)
[2022-04-02] MEDS: CARVEDILOL 3.125 MG TAB PO SCH ×2 (10:54→22:48)
[2022-04-02] MEDS: ENOXAPARIN SOD 40 MG/0.4 ML SYRINGE SC SCH ×2 (10:55→22:46)
[2022-04-02] MEDS: PANTOPRAZOLE 40 MG TAB PO SCH (10:55)
[2022-04-02 13:00] VITALS: BP 109/75
[2022-04-02] MEDS ORDERED: ADENOSINE 6 MG/2 ML INJ IV ONE (14:45)
[2022-04-02 17:00] VITALS: BP 112/74
[2022-04-02] MEDS ORDERED: WARFARIN SODIUM 2 MG TAB PO ONE (17:00)
[2022-04-02 22:00] VITALS: BP 113/77
[2022-04-02] MEDS: DOCUSATE SOD 100 MG CAP PO SCH (22:00)
[2022-04-02] MEDS: FERROUS SULFATE 300 MG/5 ML ORAL LIQ PO SCH (22:46)
[2022-04-02] MEDS: METOCLOPRAMIDE 10 mg/10ml ORAL soln PO SCH (22:50)
[2022-04-03] MEDS: AMIODARONE 450mg/250ml AE 250 ML IV SCH ×2 (01:00→15:30)
[2022-04-03 05:27] VITALS: BP 100/62
[2022-04-03 06:38] LABS: Basophils # (auto) 0 10 ^3/uL (0-0.2); Basophils % (auto) 0.1 % (0.0-2.0); Eosinophils # (auto) 0 10 ^3/uL (0-0.8); Eosinophils % (auto) 0.1 % (0.0-7.0); Hematocrit 24.6 % (36.0-46.0); Hemoglobin 7.8 g/dL (12.2-16.2); Lymphocytes # (auto) 1.2 10 ^3/uL (0.4-5.4); Lymphocytes % (auto) 8.2 % (10.0-50.0); Mean Corpuscular Hemoglobin 28.1 pg (28.0-32.0); Mean Corpuscular Hgb Conc. 31.6 g/dL (32.0-36.0); Mean Corpuscular Volume 89.1 fL (80.0-100.0); Monocytes % (auto) 7.2 % (0.0-12.0); Neutrophils # (auto) 12.3 10 ^3/uL (1.6-8.6); Neutrophils % (auto) 84.4 % (37.0-80.0); Nucleated Red Blood Cells % 0.1 %; Red Blood Cells 2.76 10^6/uL (4.0-5.20); Red Cell Distribution Width 18.4 % (11.8-14.3); White Blood Cell 14.6 10^3/uL (4.4-10.8)
[2022-04-03 06:52] LABS: INR 1.55 (0.9-1.15); Partial Thromboplastin Time 35.5 sec (24.6-33.4)
[2022-04-03] MEDS: ENSURE CLEAR Mixed Berry 8oz Carton PO SCH ×2 (08:00→12:24)
[2022-04-03 09:00] VITALS: BP 112/70
[2022-04-03] MEDS: DOCUSATE SOD 100 MG CAP PO SCH ×2 (10:00→22:00)
[2022-04-03] MEDS: ENOXAPARIN SOD 40 MG/0.4 ML SYRINGE SC SCH ×2 (10:31→23:02)
[2022-04-03] MEDS: CARVEDILOL 3.125 MG TAB PO SCH ×2 (10:32→23:01)
[2022-04-03] MEDS: FERROUS SULFATE 300 MG/5 ML ORAL LIQ PO SCH ×2 (10:32→22:00)
[2022-04-03] MEDS: PANTOPRAZOLE 40 MG TAB PO SCH (10:33)
[2022-04-03] MEDS: METOCLOPRAMIDE 10 mg/10ml ORAL soln PO SCH ×2 (12:24→23:01)
[2022-04-03 13:00] VITALS: BP 102/66
[2022-04-03] MEDS ORDERED: ACETAMINOPHEN 650 mg PER 20.3 mL UD GT PRN (15:45)
[2022-04-03 17:00] VITALS: BP 110/76
[2022-04-03] MEDS ORDERED: WARFARIN SODIUM 5 MG TAB PO ONE (17:00)
[2022-04-03 22:12] VITALS: BP 107/73
[2022-04-04] MEDS: AMIODARONE 450mg/250ml AE 250 ML IV SCH (04:28)
[2022-04-04 05:50] VITALS: BP 115/73
[2022-04-04 08:14] VITALS: BP 114/83
[2022-04-04 10:04] LABS: BUN/Creatinine Ratio 22.5; Calcium 7.3 mg/dL (8.5-10.1); Potassium 3.6 mmol/L (3.5-5.1)
[2022-04-04] MEDS: FERROUS SULFATE 300 MG/5 ML ORAL LIQ PO SCH ×2 (10:20→22:34)
[2022-04-04] MEDS: PANTOPRAZOLE 40 MG TAB PO SCH (10:21)
[2022-04-04] MEDS: DIGOXIN 0.125 MG TAB PO SCH (10:21)
[2022-04-04] MEDS: METOCLOPRAMIDE 10 mg/10ml ORAL soln PO SCH ×2 (10:22→22:36)
[2022-04-04] MEDS: ENOXAPARIN SOD 40 MG/0.4 ML SYRINGE SC SCH ×2 (10:22→22:35)
[2022-04-04] MEDS: ENSURE CLEAR Mixed Berry 8oz Carton PO SCH ×2 (10:24→13:53)
[2022-04-04 11:27] LABS: Basophils # (auto) 0 10 ^3/uL (0-0.2); Eosinophils # (auto) 0 10 ^3/uL (0-0.8); Hemoglobin 7.2 g/dL (12.2-16.2); Mean Corpuscular Volume 84.7 fL (80.0-100.0); White Blood Cell 16.9 10^3/uL (4.4-10.8)
[2022-04-04 11:33] LABS: Basophils % (auto) 0.1 % (0.0-2.0); Hematocrit 21.7 % (36.0-46.0); Lymphocytes % (auto) 6.1 % (10.0-50.0); Mean Corpuscular Hgb Conc. 33.1 g/dL (32.0-36.0); Monocytes # (auto) 0.9 10 ^3/uL (0-1.3); Monocytes % (auto) 5.1 % (0.0-12.0); Neutrophils # (auto) 14.9 10 ^3/uL (1.6-8.6); Neutrophils % (auto) 88.7 % (37.0-80.0); Red Blood Cells 2.56 10^6/uL (4.0-5.20)
[2022-04-04 12:05] LABS: INR 3.26 (0.9-1.15); Partial Thromboplastin Time 52.9 sec (24.6-33.4)
[2022-04-04 12:16] VITALS: BP 124/81
[2022-04-04 17:00] VITALS: BP 108/77
[2022-04-04] MEDS ORDERED: ACETAMINOPHEN 650 MG RECT SUPP PR PRN (17:45)
[2022-04-04 22:00] VITALS: BP 131/70
[2022-04-04] MEDS: CARVEDILOL 3.125 MG TAB PO SCH (22:34)
[2022-04-04] MEDS: Ensure Enlive Vanilla 8oz Bottle PO SCH (22:37)
[2022-04-05] VITALS (9 sets, daily range): BP systolic 98–127; BP diastolic 67–87
[2022-04-05] MEDS: AMIODARONE 450mg/250ml AE 250 ML IV SCH ×2 (00:08→15:22)
[2022-04-05 05:14] LABS: Basophils # (auto) 0 10 ^3/uL (0-0.2); Basophils % (auto) 0.2 % (0.0-2.0); Eosinophils # (auto) 0 10 ^3/uL (0-0.8); Hematocrit 19.9 % (36.0-46.0); Lymphocytes # (auto) 0.8 10 ^3/uL (0.4-5.4); Lymphocytes % (auto) 4.8 % (10.0-50.0); Mean Corpuscular Hemoglobin 27.2 pg (28.0-32.0); Mean Corpuscular Hgb Conc. 32.3 g/dL (32.0-36.0); Monocytes # (auto) 0.7 10 ^3/uL (0-1.3); Monocytes % (auto) 4.6 % (0.0-12.0); Neutrophils # (auto) 14.3 10 ^3/uL (1.6-8.6); Neutrophils % (auto) 90.4 % (37.0-80.0); Red Blood Cells 2.37 10^6/uL (4.0-5.20); Red Cell Distribution Width 17.2 % (11.8-14.3); White Blood Cell 15.8 10^3/uL (4.4-10.8)
[2022-04-05 05:18] LABS: Hemoglobin 6.4 g/dL (12.2-16.2)
[2022-04-05 05:23] LABS: INR 3.15 (0.9-1.15); Partial Thromboplastin Time 55.4 sec (24.6-33.4)
[2022-04-05 05:36] LABS: Potassium 3.8 mmol/L (3.5-5.1)
[2022-04-05 05:41] LABS: BUN/Creatinine Ratio 28.1; Calcium 7.3 mg/dL (8.5-10.1)
[2022-04-05] MEDS: PANTOPRAZOLE 40 MG TAB PO SCH (09:06)
[2022-04-05] MEDS: CARVEDILOL 3.125 MG TAB PO SCH ×2 (09:07→22:01)
[2022-04-05] MEDS: FERROUS SULFATE 300 MG/5 ML ORAL LIQ PO SCH ×2 (09:07→22:00)
[2022-04-05] MEDS: DOCUSATE SOD 100 MG CAP PO SCH (09:08)
[2022-04-05] MEDS: METOCLOPRAMIDE 10 mg/10ml ORAL soln PO SCH ×2 (09:08→22:01)
[2022-04-05] MEDS: ENOXAPARIN SOD 40 MG/0.4 ML SYRINGE SC SCH ×2 (09:08→22:00)
[2022-04-05] MEDS: Ensure Enlive Vanilla 8oz Bottle PO SCH ×2 (09:09→22:00)
[2022-04-05] MEDS: Juven Orange Powder PACKET 27.5gm PO SCH (09:09)
[2022-04-05] MEDS ORDERED: ACETAMINOPHEN 650 mg PER 20.3 mL UD PO PRN (16:00)
[2022-04-06 05:00] VITALS: BP 136/88
[2022-04-06] MEDS: AMIODARONE 450mg/250ml AE 250 ML IV SCH ×2 (06:02→17:07)
[2022-04-06 06:06] LABS: INR 2.94 (0.9-1.15)
[2022-04-06 07:47] LABS: Basophils # (auto) 0 10 ^3/uL (0-0.2); Basophils % (auto) 0.2 % (0.0-2.0); Eosinophils # (auto) 0 10 ^3/uL (0-0.8); Eosinophils % (auto) 0.1 % (0.0-7.0); Hematocrit 27.6 % (36.0-46.0); Hemoglobin 9.1 g/dL (12.2-16.2); Lymphocytes # (auto) 0.8 10 ^3/uL (0.4-5.4); Lymphocytes % (auto) 5.7 % (10.0-50.0); Mean Corpuscular Hemoglobin 28.5 pg (28.0-32.0); Mean Corpuscular Hgb Conc. 33.1 g/dL (32.0-36.0); Mean Corpuscular Volume 86.3 fL (80.0-100.0); Monocytes # (auto) 0.5 10 ^3/uL (0-1.3); Monocytes % (auto) 3.5 % (0.0-12.0); Neutrophils # (auto) 13.5 10 ^3/uL (1.6-8.6); Neutrophils % (auto) 90.5 % (37.0-80.0); Red Cell Distribution Width 16.1 % (11.8-14.3); White Blood Cell 14.9 10^3/uL (4.4-10.8)
[2022-04-06] MEDS: PANTOPRAZOLE 40 MG TAB PO SCH (08:57)
[2022-04-06] MEDS: ENOXAPARIN SOD 40 MG/0.4 ML SYRINGE SC SCH ×2 (08:58→22:26)
[2022-04-06] MEDS: CARVEDILOL 3.125 MG TAB PO SCH ×2 (08:58→22:25)
[2022-04-06] MEDS: DIGOXIN 0.125 MG TAB PO SCH (08:58)
[2022-04-06] MEDS: FERROUS SULFATE 300 MG/5 ML ORAL LIQ PO SCH ×2 (08:58→22:24)
[2022-04-06] MEDS: DOCUSATE SOD 100 MG CAP PO SCH (08:59)
[2022-04-06] MEDS: Ensure Enlive Vanilla 8oz Bottle PO SCH ×2 (08:59→22:37)
[2022-04-06] MEDS: METOCLOPRAMIDE 10 mg/10ml ORAL soln PO SCH ×2 (08:59→22:26)
[2022-04-06] MEDS: Juven Orange Powder PACKET 27.5gm PO SCH (08:59)
[2022-04-06 09:22] VITALS: BP 109/84
[2022-04-06 13:00] VITALS: BP 109/81
[2022-04-06 17:00] VITALS: BP 118/88
[2022-04-06] MEDS ORDERED: WARFARIN SODIUM 2 MG TAB PO SCH (17:00)
[2022-04-06 22:00] VITALS: BP 108/86
[2022-04-07] VITALS (7 sets, daily range): BP systolic 81–115; BP diastolic 57–77
[2022-04-07 06:32] LABS: Basophils # (auto) 0 10 ^3/uL (0-0.2); Basophils % (auto) 0.3 % (0.0-2.0); Eosinophils # (auto) 0 10 ^3/uL (0-0.8); Eosinophils % (auto) 0.1 % (0.0-7.0); Hematocrit 30.3 % (36.0-46.0); Lymphocytes # (auto) 1.3 10 ^3/uL (0.4-5.4); Lymphocytes % (auto) 9.5 % (10.0-50.0); Mean Corpuscular Hemoglobin 28.8 pg (28.0-32.0); Mean Corpuscular Hgb Conc. 33.1 g/dL (32.0-36.0); Mean Corpuscular Volume 86.9 fL (80.0-100.0); Monocytes # (auto) 0.5 10 ^3/uL (0-1.3); Monocytes % (auto) 3.5 % (0.0-12.0); Neutrophils # (auto) 11.7 10 ^3/uL (1.6-8.6); Neutrophils % (auto) 86.6 % (37.0-80.0); Nucleated Red Blood Cells % 0.2 %; Red Blood Cells 3.49 10^6/uL (4.0-5.20); Red Cell Distribution Width 16.4 % (11.8-14.3); White Blood Cell 13.5 10^3/uL (4.4-10.8)
[2022-04-07 07:27] LABS: INR 1.94 (0.9-1.15); Partial Thromboplastin Time 44.9 sec (24.6-33.4)
[2022-04-07] MEDS: ENOXAPARIN SOD 40 MG/0.4 ML SYRINGE SC SCH (08:44)
[2022-04-07] MEDS: CARVEDILOL 3.125 MG TAB PO SCH ×2 (08:44→21:35)
[2022-04-07] MEDS: FERROUS SULFATE 300 MG/5 ML ORAL LIQ PO SCH ×2 (08:44→21:45)
[2022-04-07] MEDS: PANTOPRAZOLE 40 MG TAB PO SCH (08:44)
[2022-04-07] MEDS: Ensure Enlive Vanilla 8oz Bottle PO SCH ×2 (08:45→22:00)
[2022-04-07] MEDS: Juven Orange Powder PACKET 27.5gm PO SCH (08:45)
[2022-04-07] MEDS: METOCLOPRAMIDE 10 mg/10ml ORAL soln PO SCH (08:45)
[2022-04-07] MEDS ORDERED: AMIODARONE HCL 200 MG TAB PO SCH (10:00)
[2022-04-07] MEDS ORDERED: HYALURONIDASE 150 UNIT/1 ML SUBCUT ONE ×2 (10:15→11:15)
[2022-04-07 11:23] LABS: Potassium 3.8 mmol/L (3.5-5.1)
[2022-04-07 11:26] LABS: Magnesium 1.2 mg/dL (1.6-2.6)
[2022-04-07] MEDS: DRONEDARONE HCL 400 MG TAB PO SCH ×2 (12:03→21:39)
[2022-04-07] MEDS ORDERED: SODIUM CHLORIDE 0.9% 500 ML IV ONE (12:15)
[2022-04-07] MEDS ORDERED: POTASSIUM CHLORIDE 20 MEQ, LIDOCAINE 1% (LOCAL ANESTH.) 2 ML in SODIUM CHL 0.9% 100 ML IV ONE (12:15)
[2022-04-07] MEDS: MAGNESIUM SULFATE 1GM/100ML 100 ML IV SCH ×2 (13:22→14:28)
[2022-04-07] MEDS ORDERED: WARFARIN SODIUM 2.5 MG TAB PO ONE (17:00)
[2022-04-07] MEDS: MAGNESIUM OXIDE 400 MG TAB PO SCH (21:35)
[2022-04-08 05:00] VITALS: BP 110/69
[2022-04-08 07:12] LABS: Magnesium 1.5 mg/dL (1.6-2.6); Potassium 4.1 mmol/L (3.5-5.1)
[2022-04-08] MEDS: Juven Orange Powder PACKET 27.5gm PO SCH (08:12)
[2022-04-08] MEDS ORDERED: MAGNESIUM SULFATE 1GM/100ML 100 ML IV ONE (08:15)
[2022-04-08 08:46] VITALS: BP 112/70
[2022-04-08 09:28] LABS: INR 1.87 (0.9-1.15); Partial Thromboplastin Time 39.7 sec (24.6-33.4)
[2022-04-08] MEDS: FERROUS SULFATE 300 MG/5 ML ORAL LIQ PO SCH ×2 (09:42→22:30)
[2022-04-08] MEDS: DRONEDARONE HCL 400 MG TAB PO SCH ×2 (09:42→22:00)
[2022-04-08] MEDS: PANTOPRAZOLE 40 MG TAB PO SCH (09:42)
[2022-04-08] MEDS: DIGOXIN 0.125 MG TAB PO SCH (09:43)
[2022-04-08] MEDS: MAGNESIUM OXIDE 400 MG TAB PO SCH ×2 (09:43→22:26)
[2022-04-08] MEDS: CARVEDILOL 3.125 MG TAB PO SCH ×2 (09:44→22:25)
[2022-04-08] MEDS: Ensure Enlive Vanilla 8oz Bottle PO SCH ×2 (09:44→22:30)
[2022-04-08] MEDS ORDERED: MEROPENEM 1GM IVPB 100 ML IV ONE (10:15)
[2022-04-08] MEDS ORDERED: VANCOMYCIN PER PHARMACY 0 MG IV SCH (10:15)
[2022-04-08] MEDS ORDERED: VANCOMYCIN 750mg/250ml 250 ML IV ONE (10:30)
[2022-04-08 13:00] VITALS: BP 123/59
[2022-04-08 17:00] VITALS: BP 95/61
[2022-04-08] MEDS ORDERED: WARFARIN SODIUM 2 MG TAB PO ONE (17:00)
[2022-04-08 22:00] VITALS: BP 103/57
[2022-04-09] MEDS: VANCOMYCIN 750mg/250ml 250 ML IV SCH ×3 (00:59→21:15)
[2022-04-09 05:00] VITALS: BP 96/62
[2022-04-09 06:44] LABS: Basophils # (auto) 0 10 ^3/uL (0-0.2); Basophils % (auto) 0.3 % (0.0-2.0); Eosinophils # (auto) 0 10 ^3/uL (0-0.8); Eosinophils % (auto) 0.2 % (0.0-7.0); Neutrophils # (auto) 3.7 10 ^3/uL (1.6-8.6); Nucleated Red Blood Cells % 0.1 %
[2022-04-09 06:46] LABS: Hematocrit 23.7 % (36.0-46.0); Lymphocytes # (auto) 0.7 10 ^3/uL (0.4-5.4); Mean Corpuscular Hemoglobin 28.8 pg (28.0-32.0); Mean Corpuscular Hgb Conc. 33.6 g/dL (32.0-36.0); Mean Corpuscular Volume 85.7 fL (80.0-100.0); Monocytes # (auto) 0.5 10 ^3/uL (0-1.3); Monocytes % (auto) 9.3 % (0.0-12.0); Neutrophils % (auto) 75.2 % (37.0-80.0); Red Blood Cells 2.76 10^6/uL (4.0-5.20); Red Cell Distribution Width 16.4 % (11.8-14.3)
[2022-04-09 06:54] LABS: INR 2.33 (0.9-1.15); Partial Thromboplastin Time 43.4 sec (24.6-33.4)
[2022-04-09 07:45] LABS: BUN/Creatinine Ratio 26.3; Bilirubin, Total 0.3 mg/dL (0.2-1.0); Calcium 7.6 mg/dL (8.5-10.1); Magnesium 1.8 mg/dL (1.6-2.6); Potassium 4.3 mmol/L (3.5-5.1); Total Protein 5.5 g/dL (6.4-8.2)
[2022-04-09 08:05] VITALS: BP 104/69
[2022-04-09] MEDS: Juven Orange Powder PACKET 27.5gm PO SCH (10:00)
[2022-04-09] MEDS: Ensure Enlive Vanilla 8oz Bottle PO SCH ×2 (10:00→22:00)
[2022-04-09] MEDS: FERROUS SULFATE 300 MG/5 ML ORAL LIQ PO SCH ×2 (10:36→21:44)
[2022-04-09] MEDS: DIGOXIN 0.125 MG TAB PO SCH (10:37)
[2022-04-09] MEDS: MAGNESIUM OXIDE 400 MG TAB PO SCH ×2 (10:37→21:44)
[2022-04-09] MEDS: DRONEDARONE HCL 400 MG TAB PO SCH ×2 (10:37→21:44)
[2022-04-09] MEDS: PANTOPRAZOLE 40 MG TAB PO SCH (10:37)
[2022-04-09] MEDS: CARVEDILOL 3.125 MG TAB PO SCH ×2 (10:38→23:00)
[2022-04-09 12:05] VITALS: BP 95/62
[2022-04-09] MEDS ORDERED: MEROPENEM 1GM IVPB 100 ML IV SCH (14:00)
[2022-04-09] MEDS: CEFTRIAXONE SODIUM 2 GM in D5W 5% 50 ML IV SCH (16:52)
[2022-04-09 16:53] VITALS: BP 97/71
[2022-04-09] MEDS ORDERED: WARFARIN SODIUM 2 MG TAB PO ONE (17:00)
[2022-04-09 22:00] VITALS: BP 102/64
[2022-04-10 05:00] VITALS: BP 96/63
[2022-04-10] MEDS: VANCOMYCIN 750mg/250ml 250 ML IV SCH (06:31)
[2022-04-10 06:47] LABS: BUN/Creatinine Ratio 27.3; Calcium 7.7 mg/dL (8.5-10.1); Potassium 4.8 mmol/L (3.5-5.1)
[2022-04-10 07:23] LABS: Basophils # (auto) 0 10 ^3/uL (0-0.2); Basophils % (auto) 0.4 % (0.0-2.0); Eosinophils # (auto) 0 10 ^3/uL (0-0.8); Eosinophils % (auto) 0.3 % (0.0-7.0); Hematocrit 24.2 % (36.0-46.0); Hemoglobin 8.1 g/dL (12.2-16.2); Lymphocytes # (auto) 0.9 10 ^3/uL (0.4-5.4); Lymphocytes % (auto) 16.1 % (10.0-50.0); Mean Corpuscular Hemoglobin 28.4 pg (28.0-32.0); Mean Corpuscular Hgb Conc. 33.5 g/dL (32.0-36.0); Mean Corpuscular Volume 84.9 fL (80.0-100.0); Monocytes # (auto) 0.6 10 ^3/uL (0-1.3); Monocytes % (auto) 10.1 % (0.0-12.0); Neutrophils # (auto) 4.1 10 ^3/uL (1.6-8.6); Neutrophils % (auto) 73.1 % (37.0-80.0); Red Blood Cells 2.85 10^6/uL (4.0-5.20); Red Cell Distribution Width 16.3 % (11.8-14.3); White Blood Cell 5.6 10^3/uL (4.4-10.8)
[2022-04-10 08:45] VITALS: BP 107/72
[2022-04-10 09:17] LABS: INR 2.5 (0.9-1.15); Partial Thromboplastin Time 44.7 sec (24.6-33.4)
[2022-04-10] MEDS: Juven Orange Powder PACKET 27.5gm PO SCH (10:00)
[2022-04-10] MEDS: FERROUS SULFATE 300 MG/5 ML ORAL LIQ PO SCH (11:26)
[2022-04-10] MEDS: DIGOXIN 0.125 MG TAB PO SCH (11:27)
[2022-04-10] MEDS: MAGNESIUM OXIDE 400 MG TAB PO SCH (11:27)
[2022-04-10] MEDS: PANTOPRAZOLE 40 MG TAB PO SCH (11:28)
[2022-04-10] MEDS: CARVEDILOL 3.125 MG TAB PO SCH (11:28)
[2022-04-10] MEDS: DRONEDARONE HCL 400 MG TAB PO SCH (11:29)
[2022-04-10] MEDS: CEFTRIAXONE SODIUM 2 GM in D5W 5% 50 ML IV SCH (11:33)
[2022-04-10 13:00] VITALS: BP 111/84
[2022-04-10] MEDS: Ensure Enlive Vanilla 8oz Bottle PO SCH (13:00)
[2022-04-10] MEDS ORDERED: dilTIAZem HCL 60 MG TAB PO SCH (14:00)
[2022-04-10 17:00] VITALS: BP_SYST 116; BP_SYST 93; BP_DIAS 64; BP_DIAS 70
[2022-04-10] MEDS ORDERED: WARFARIN SODIUM 1 MG TAB PO ONE (17:00)
[2022-04-10] MEDS ORDERED: WARFARIN SODIUM 2 MG TAB PO ONE (17:00)
[2022-04-10] MEDS ORDERED: VANCOMYCIN 750mg/250ml 250 ML IV SCH (22:00)
== END 2022-04-10 20:28 | disposition left against medical advice (07) | DRG 871 ==
LOC: EDUNIT# 07:46 → ER 07:46 → EDBD 07:46 → TELE 12:16 → ICU WEST 18:40 → DOU IN ICU 03-25 02:12 → TELE-CENTR 03-27 09:08
PROVIDERS: ADMIT Nurse Practitioner Family; ATTEND Nurse Practitioner Acute Care
PROC: 5A2204Z Restoration of Cardiac Rhythm, Single (ICD-10-PCS; principal; 2022-03-21)
PROC: 06HN33Z Insertion of Infusion Device into Left Femoral Vein, Percutaneous Approach (ICD-10-PCS; 2022-03-21)
PROC: 0D9670Z Drainage of Stomach with Drainage Device, Via Natural or Artificial Opening (ICD-10-PCS; 2022-03-26)
PROC: 05HA33Z Insertion of Infusion Device into Left Brachial Vein, Percutaneous Approach (ICD-10-PCS; 2022-03-27)
PROC: B54NZZA Ultrasonography of Left Upper Extremity Veins, Guidance (ICD-10-PCS; 2022-03-27)
PROC: 30233N1 Transfusion of Nonautologous Red Blood Cells into Peripheral Vein, Percutaneous Approach (ICD-10-PCS; 2022-04-05)
DX: A41.9 Sepsis, unspecified organism (principal); E43 Unspecified severe protein-calorie malnutrition; I21.A1 Myocardial infarction type 2; N17.0 Acute kidney failure with tubular necrosis; R65.21 Severe sepsis with septic shock; R57.1 Hypovolemic shock; I50.23 Acute on chronic systolic (congestive) heart failure; J69.0 Pneumonitis due to inhalation of food and vomit; I47.1 Supraventricular tachycardia; M62.82 Rhabdomyolysis; E87.0 Hyperosmolality and hypernatremia; Z68.1 Body mass index [BMI] 19.9 or less, adult; I48.19 Other persistent atrial fibrillation; I48.92 Unspecified atrial flutter; I13.0 Hypertensive heart and chronic kidney disease with heart failure and stage 1 through stage 4 chronic kidney disease, or unspecified chronic kidney disease; I42.8 Other cardiomyopathies; E87.1 Hypo-osmolality and hyponatremia; K56.699 Other intestinal obstruction unspecified as to partial versus complete obstruction; E27.40 Unspecified adrenocortical insufficiency; D63.1 Anemia in chronic kidney disease; N18.9 Chronic kidney disease, unspecified; E87.6 Hypokalemia; R73.9 Hyperglycemia, unspecified; E88.09 Other disorders of plasma-protein metabolism, not elsewhere classified; I73.9 Peripheral vascular disease, unspecified; I51.3 Intracardiac thrombosis, not elsewhere classified; E86.0 Dehydration; D69.6 Thrombocytopenia, unspecified; D64.9 Anemia, unspecified; G40.909 Epilepsy, unspecified, not intractable, without status epilepticus; E78.5 Hyperlipidemia, unspecified; Z74.01 Bed confinement status; Z82.49 Family history of ischemic heart disease and other diseases of the circulatory system; Z82.5 Family history of asthma and other chronic lower respiratory diseases; Z86.711 Personal history of pulmonary embolism; Z86.73 Personal history of transient ischemic attack (TIA), and cerebral infarction without residual deficits; Z89.612 Acquired absence of left leg above knee; Z89.611 Acquired absence of right leg above knee; Z82.3 Family history of stroke; Z79.01 Long term (current) use of anticoagulants
CPT/HCPCS: 36415; 36556; 71045; 74018; 74176; 74250; 80048; 80053; 80076; 80162; 80202; 81001; 82040; 82533; 82550; 82570; 82607; 82728; 82746; 82962; 83540; 83550; 83605; 83735; 83874; 83880; 83935; 84100; 84132; 84300; 84443; 84478; 84484; 84540; 84550; 84560; 85025; 85610; 85730; 86850; 86900; 86901; 86920; 87040; 87081; 87086; 87426; 92610; 93005; 93306; 93971; 96365; 96366; 96367; 96368; 96375; 99291; C9113; G0378; J0153; J0696; J1815; J1885; J2001; J2185; J2250; J2405; J3470; J3480; J3490; J7060; J7131; P9047